=== PATIENT | male | born 1960 | race Caucasian/White ===

== ENCOUNTER → 2018-08-10 | Outpatient (CLI) | payer OTHER ==
[~2018-08-10] MED LIST: HTN MED
[2018-08-10 15:07] LABS: ABSOLUTE EOSINOPHILS 0.1 thou/uL (0.0-0.7); ABSOLUTE LYMPHOCYTES 1.6 thou/uL (0.8-5.3); ABSOLUTE MONOCYTES 0.7 thou/uL (0.0-1.2); ABSOLUTE NEUTROPHILS 5.9 thou/uL (1.6-8.1); BASOPHILS 0.4 %; EOSINOPHILS 1.6 %; HEMATOCRIT 44.8 % (42.0-52.0); HEMOGLOBIN 15.1 gm/dL (14.0-18.0); LYMPHOCYTES 19.6 %; MCH 32.3 pg (26.0-34.0); MCHC 33.7 g/dL (28.0-37.0); MCV 95.8 fL (80.0-100.0); MPV 7.1 fl. (7.2-11.1); NUCLEATED RBCS 0 /100WBC; PLATELET COUNT* 277 thou/uL (150-400); POLYS 70.4 %; RBC 4.68 mil/uL (4.50-6.00); RDW-CV 13.4 % (10.5-14.5); WBC 8.4 thou/uL (4.0-11.0)
[2018-08-10 15:39] LABS: ALBUMIN 4.4 g/dL (3.4-5.0); ALKALINE PHOSPHATASE 77 U/L (46-116); ANION GAP 5 mmol/L (7-16); BUN 9 mg/dL (7-18); CALCIUM 8.6 mg/dL (8.5-10.1); CHLORIDE 98 mmol/L (98-107); CHOLESTEROL 172 mg/dL (<200); CO2 28 mmol/L (21-32); CREATININE 0.8 mg/dL (0.6-1.3); GLUCOSE 93 mg/dL (70-99); HDL CHOLESTEROL 63 mg/dL (>40); LDL CHOLESTEROL 96 mg/dL (<100); MAGNESIUM 1.6 mg/dL (1.8-2.4); POTASSIUM 4.2 mmol/L (3.5-5.1); SGOT 25 U/L (15-37); SGPT 32 U/L (30-65); SODIUM 131 mmol/L (136-145); TC:HDL 2.7 Ratio (Not establshd); TOTAL BILIRUBIN 0.6 mg/dL (<0.1-1.0); TOTAL PROTEIN 7.5 g/dL (6.4-8.2); TRIGLYCERIDE 67 mg/dL (<150); VLDL 13 mg/dL (<40)
[2018-08-10 15:41] LABS: SERUM ASSESSMENT Clear
== END ==
LOC: M.LAB 14:38
PROVIDERS: Family Medicine
DX: I10 Essential (primary) hypertension (principal); F17.210 Nicotine dependence, cigarettes, uncomplicated

== ENCOUNTER 2020-09-02 12:27 | Emergency (ER) | payer OTHER ==
[~2020-09-02] VITALS: Ht 175.3 cm; Wt 74.8 kg
[2020-09-02] MEDS ORDERED: LISINOPRIL2.5 MG PO (12:39)
[2020-09-02] MEDS ORDERED: ERYTHROMYCIN E3.5 G3 OPHTHALMIC (14:49)
[2020-09-02] MEDS ORDERED: NORCO 5-325 TA1 EAC2 PO (14:53)
[2020-09-02 15:06] VITALS: BP 147/93
== END 2020-09-02 15:07 | disposition home or self-care (01) ==
LOC: M.ERS 12:27
DX: S05.02XA Injury of conjunctiva and corneal abrasion without foreign body, left eye, initial encounter (principal); I10 Essential (primary) hypertension; X58.XXXA Exposure to other specified factors, initial encounter; Y93.89 Activity, other specified; Y92.89 Other specified places as the place of occurrence of the external cause; Y99.8 Other external cause status

== ENCOUNTER 2021-07-29 08:54 | Emergency (ER) | payer OTHER ==
[~2021-07-29] VITALS: Ht 175.3 cm; Wt 74.8 kg
[~2021-07-29 08:54] MED LIST changes: +ERYTHROMYCIN E3.5 G3 OPHTHALMIC; +LISINOPRIL2.5 MG PO; +NORCO 5-325 TA1 EAC2 PO
[2021-07-29] MEDS ORDERED: NORVASC10 MG PO (09:04)
[2021-07-29] MEDS ORDERED: MELOXICAM15 MG PO (09:04)
[2021-07-29] MEDS ORDERED: LIPITOR40 MG PO (09:04)
[2021-07-29] MEDS ORDERED: TRAMADOL 50 MG50 MG PO (09:04)
[2021-07-29] MEDS ORDERED: FLEXERIL PO (10:35)
[2021-07-29] MEDS ORDERED: HYDROCODON-ACE1 EAC7 PO (10:35)
[2021-07-29 10:45] VITALS: BP 153/90
== END 2021-07-29 10:46 | disposition home or self-care (01) ==
LOC: M.ERS 08:54
DX: S32.010A Wedge compression fracture of first lumbar vertebra, initial encounter for closed fracture (principal); M54.5 Low back pain; E78.5 Hyperlipidemia, unspecified; I10 Essential (primary) hypertension; Z79.899 Other long term (current) drug therapy; X50.0XXA Overexertion from strenuous movement or load, initial encounter; Y93.89 Activity, other specified; Y92.89 Other specified places as the place of occurrence of the external cause; Y99.8 Other external cause status

== ENCOUNTER → 2021-08-27 | Outpatient (CLI) | payer OTHER ==
[~2021-08-27] MED LIST changes: +FLEXERIL PO; +HYDROCODON-ACE1 EAC7 PO; +LIPITOR40 MG PO; +MELOXICAM15 MG PO; +NORVASC10 MG PO; +TRAMADOL 50 MG50 MG PO
== END ==
LOC: M.RAD 09:52
PROVIDERS: ATTEND Nurse Practitioner Family
DX: S32.010A Wedge compression fracture of first lumbar vertebra, initial encounter for closed fracture (principal); M81.0 Age-related osteoporosis without current pathological fracture; X58.XXXA Exposure to other specified factors, initial encounter; Y93.89 Activity, other specified; Y92.89 Other specified places as the place of occurrence of the external cause; Y99.8 Other external cause status